=== PATIENT | male | born 1995 | race Caucasian/White ===

== ENCOUNTER 2020-02-16 03:15 | Day surgery (SDC) | payer OTHER ==
[2020-02-16] MEDS ORDERED: Sodium Chloride 0.9% 10 ML Syringe FLUSH PRN (03:27)
[2020-02-16] MEDS ORDERED: Lactated Ringers 1,000 ML IV ONE (03:27)
[2020-02-16] MEDS ORDERED: Morphine 4 MG/ML Syringe IVPUSH ONE ×2 (03:27→05:32)
[2020-02-16] MEDS ORDERED: Sodium Chloride 0.9% 2.5 ML Syringe FLUSH PRN (03:27)
[2020-02-16] MEDS ORDERED: Dicyclomine 10 MG Cap PO ONE (03:27)
--- NOTE | 2020-02-16 03:27 | EDM.PDOC ---
ED HPI GENERAL MEDICAL PROBLEM - General Chief Complaint: Abdominal Pain Stated Complaint: LOWER ABDOMINAL PAIN Time Seen by Provider: 02/16/20 03:23 Source of Information: Reports: Patient History Limitations: Reports: No Limitations - History of Present Illness INITIAL COMMENTS - FREE TEXT/NARRATIVE: 24-year-old male history of hypertension and hemorrhoids presents with abdominal cramping for 1 day. Cramping pain is moderate, waxes and wanes, started in the epigastric region then radiated to suprapubic region, associated with one episode of diarrhea with bright red blood. Denies fever, chills, nausea, vomiting, dysuria, penile discharge. He has been noncompliant on his HTN meds for about a month. Last PO was at 2030 last night. ROS: A 10-point review of systems, other than pertinent positives and negatives as stated per HPI, is otherwise negative Past medical history: No additional pertinent history Past Surgical history: No additional pertinent history Social history: No additional pertinent history Family history: No additional pertinent history PHYSICAL EXAM General: AOx4, GCS = 15, mild distress HEENT: dry mucous membrane Neck: supple, no meningismus, no Kernig or Brudzinski Cardiac: S1S2 RRR Respiratory: CTAB, no crackles or rales, no wheezing Abdomen: Soft, ttp suprapubic and LLQ, no rebound or guarding, nondistended, no pulsatile mass. Back: nontender Musculoskeletal: NVI distally, no deformity Neuro: No focal deficits, CN 2 - 12 WNL. mid abdominal Pain Score (Numeric/FACES): 7 - Related Data Allergies Allergy/AdvReac Type Severity Reaction Status Date / Time No Known Allergies Allergy Verified 02/16/20 03:37 Home Meds: Home Meds . [No Known Home Meds] 02/16/20 [History] ED ROS GENERAL - Review of Systems Review Of Systems: Comprehensive ROS is negative, except as noted in HPI. ED EXAM, GI/ABD - Physical Exam Exam: See Below (see dictation) Course - Vital Signs Last Recorded V/S: Last Vital Signs Temp 96.8 F L 02/16/20 03:35 Pulse 79 02/16/20 04:18 Resp 16 02/16/20 03:35 BP 162/96 H 02/16/20 04:18 Pulse Ox 98 02/16/20 04:18 - Orders/Labs/Meds Orders: Active Orders 24 hr Category Date Time Status Communication Order [RC] ROUTINE Care 02/16/20 05:20 Active Verify Patient Consent Obtain [RC] ASDIRECTED Care 02/16/20 05:19 Active Lactated Ringers [Ringers, Lactated] 1,000 ml Med 02/16/20 05:30 Active IV ASDIRECTED Sodium Chloride 0.9% [Saline Flush] Med 02/16/20 03:27 Active 10 ml FLUSH ASDIRECTED PRN Sodium Chloride 0.9% [Saline Flush] Med 02/16/20 03:27 Active 2.5 ml FLUSH ASDIRECTED PRN Saline Lock Insert [OM.PC] Stat Oth 02/16/20 03:27 Ordered Medication Orders Lactated Ringer's (Ringers, Lactated) 1,000 mls @ 150 mls/hr IV ASDIRECTED SAMPSON Last Admin: 02/16/20 05:34 Dose: 150 mls/hr Documented by: ANTOLIN Sodium Chloride (Saline Flush) 10 ml FLUSH ASDIRECTED PRN PRN Reason: Keep Vein Open Last Admin: 02/16/20 04:16 Dose: 10 ml Documented by: ANTOLIN Sodium Chloride (Saline Flush) 2.5 ml FLUSH ASDIRECTED PRN PRN Reason: Keep Vein Open Last Admin: 02/16/20 04:17 Dose: 2.5 ml Documented by: ANTOLIN Labs: Laboratory Tests 02/16/20 02/16/20 02/16/20 Range/Units 03:46 03:46 03:55 WBC 12.61 H (4.0-11.0) K/uL RBC 5.11 (4.50-5.90) M/uL Hgb 15.3 (13.0-17.0) g/dL Hct 44.2 (38.0-50.0) % MCV 86.5 (80.0-98.0) fL MCH 29.9 (27.0-32.0) pg MCHC 34.6 (31.0-37.0) g/dL RDW Std Deviation 40.8 (28.0-62.0) fl RDW Coeff of Swati 13 (11.0-15.0) % Plt Count 279 (150-400) K/uL MPV 9.60 (7.40-12.00) fL Neut % (Auto) 67.3 (48.0-80.0) % Lymph % (Auto) 22.5 (16.0-40.0) % [place] % (Auto) 7.8 (0.0-15.0) % Eos % (Auto) 2.2 (0.0-7.0) % Baso % (Auto) 0.2 (0.0-1.5) % Neut # (Auto) 8.5 H (1.4-5.7) K/uL Lymph # (Auto) 2.8 H (0.6-2.4) K/uL [place] # (Auto) 1.0 H (0.0-0.8) K/uL Eos # (Auto) 0.3 (0.0-0.7) K/uL Baso # (Auto) 0.0 (0.0-0.1) K/uL Nucleated RBC % 0.0 /100WBC Nucleated RBCs # 0 K/uL Sodium (136-148) mmol/L Potassium (3.5-5.1) mmol/L Chloride (98-107) mmol/L Carbon Dioxide (21.0-32.0) mmol/L BUN (7.0-18.0) mg/dL Creatinine (0.8-1.3) mg/dL Est Cr Clr Drug Dosing mL/min Estimated GFR (MDRD) ml/min Glucose (74-106) mg/dL Calcium (8.5-10.1) mg/dL Total Bilirubin (0.2-1.0) mg/dL AST (15-37) IU/L ALT (14-63) IU/L Alkaline Phosphatase (46-116) U/L Total Protein (6.4-8.2) g/dL Albumin (3.4-5.0) g/dL Globulin (2.6-4.0) g/dL Albumin/Globulin Ratio (0.9-1.6) Lipase (73-393) U/L Urine Color YELLOW Urine Appearance CLEAR Urine pH 5.0 (5.0-8.0) Ur Specific [place] >= 1.030 (1.001-1.035) Urine Protein NEGATIVE (NEGATIVE) mg/dL Urine Glucose (UA) NEGATIVE (NEGATIVE) mg/dL Urine Ketones NEGATIVE (NEGATIVE) mg/dL Urine Occult Blood NEGATIVE (NEGATIVE) Urine Nitrite NEGATIVE (NEGATIVE) Urine Bilirubin NEGATIVE (NEGATIVE) Urine Urobilinogen 0.2 (<2.0) EU/dL Ur Leukocyte Esterase NEGATIVE (NEGATIVE) Urine RBC 0-1 (0-2/HPF) Urine WBC 0-2 (0-5/HPF) Ur Epithelial Cells OCCASIONAL (NONE-FEW) Urine Bacteria RARE (NEGATIVE) Urine Mucus LIGHT (NONE-MOD) Urine Opiates Screen NEGATIVE (NEGATIVE) Ur Oxycodone Screen NEGATIVE (NEGATIVE) Urine Methadone Screen NEGATIVE (NEGATIVE) Ur Barbiturates Screen NEGATIVE (NEGATIVE) Ur Phencyclidine Scrn NEGATIVE (NEGATIVE) Ur Amphetamine Screen NEGATIVE (NEGATIVE) U Methamphetamines Scrn NEGATIVE (NEGATIVE) U Benzodiazepines Scrn NEGATIVE (NEGATIVE) U Cocaine Metab Screen NEGATIVE (NEGATIVE) U Marijuana (THC) Screen POSITIVE (NEGATIVE) COVID-19 (NICOLE) (NEGATIVE) 02/16/20 02/16/20 Range/Units 03:55 04:51 WBC (4.0-11.0) K/uL RBC (4.50-5.90) M/uL Hgb (13.0-17.0) g/dL Hct (38.0-50.0) % MCV (80.0-98.0) fL MCH (27.0-32.0) pg MCHC (31.0-37.0) g/dL RDW Std Deviation (28.0-62.0) fl RDW Coeff of Swati (11.0-15.0) % Plt Count (150-400) K/uL MPV (7.40-12.00) fL Neut % (Auto) (48.0-80.0) % Lymph % (Auto) (16.0-40.0) % [place] % (Auto) (0.0-15.0) % Eos % (Auto) (0.0-7.0) % Baso % (Auto) (0.0-1.5) % Neut # (Auto) (1.4-5.7) K/uL Lymph # (Auto) (0.6-2.4) K/uL [place] # (Auto) (0.0-0.8) K/uL Eos # (Auto) (0.0-0.7) K/uL Baso # (Auto) (0.0-0.1) K/uL Nucleated RBC % /100WBC Nucleated RBCs # K/uL Sodium 137 (136-148) mmol/L Potassium 3.9 (3.5-5.1) mmol/L Chloride 103 (98-107) mmol/L Carbon Dioxide 21.6 (21.0-32.0) mmol/L BUN 17 (7.0-18.0) mg/dL Creatinine 1.0 (0.8-1.3) mg/dL Est Cr Clr Drug Dosing 139.84 mL/min Estimated GFR (MDRD) > 60.0 ml/min Glucose 104 (74-106) mg/dL Calcium 8.9 (8.5-10.1) mg/dL Total Bilirubin 0.6 (0.2-1.0) mg/dL AST 16 (15-37) IU/L ALT 32 (14-63) IU/L Alkaline Phosphatase 111 (46-116) U/L Total Protein 7.3 (6.4-8.2) g/dL Albumin 4.2 (3.4-5.0) g/dL Globulin 3.1 (2.6-4.0) g/dL Albumin/Globulin Ratio 1.4 (0.9-1.6) Lipase 93 (73-393) U/L Urine Color Urine Appearance Urine pH (5.0-8.0) Ur Specific [place] (1.001-1.035) Urine Protein (NEGATIVE) mg/dL Urine Glucose (UA) (NEGATIVE) mg/dL Urine Ketones (NEGATIVE) mg/dL Urine Occult Blood (NEGATIVE) Urine Nitrite (NEGATIVE) Urine Bilirubin (NEGATIVE) Urine Urobilinogen (<2.0) EU/dL Ur Leukocyte Esterase (NEGATIVE) Urine RBC (0-2/HPF) Urine WBC (0-5/HPF) Ur Epithelial Cells (NONE-FEW) Urine Bacteria (NEGATIVE) Urine Mucus (NONE-MOD) Urine Opiates Screen (NEGATIVE) Ur Oxycodone Screen (NEGATIVE) Urine Methadone Screen (NEGATIVE) Ur Barbiturates Screen (NEGATIVE) Ur Phencyclidine Scrn (NEGATIVE) Ur Amphetamine Screen (NEGATIVE) U Methamphetamines Scrn (NEGATIVE) U Benzodiazepines Scrn (NEGATIVE) U Cocaine Metab Screen (NEGATIVE) U Marijuana (THC) Screen (NEGATIVE) COVID-19 (NICOLE) NEGATIVE (NEGATIVE) Meds: Medications Generic Name Dose Route Start Last Admin Trade Name Freq PRN Reason Stop Dose Admin Lactated Ringer's 1,000 mls @ 150 mls/hr 02/16/20 05:30 02/16/20 05:34 Ringers, Lactated IV 150 mls/hr ASDIRECTED SAMPSON Administration Sodium Chloride 10 ml 02/16/20 03:27 02/16/20 04:16 Saline Flush FLUSH 10 ml ASDIRECTED PRN Administration Keep Vein Open Sodium Chloride 2.5 ml 02/16/20 03:27 02/16/20 04:17 Saline Flush FLUSH 2.5 ml ASDIRECTED PRN Administration Keep Vein Open Discontinued Medications Generic Name Dose Route Start Last Admin Trade Name Freq PRN Reason Stop Dose Admin Dicyclomine HCl 20 mg 02/16/20 03:27 02/16/20 04:00 Bentyl PO 02/16/20 03:28 20 mg ONETIME ONE Administration Hydralazine HCl 10 mg 02/16/20 03:39 02/16/20 04:00 Apresoline IVPUSH 02/16/20 03:40 10 mg ONETIME ONE Administration Lactated Ringer's 1,000 mls @ 999 mls/hr 02/16/20 03:27 02/16/20 04:00 Ringers, Lactated IV 02/16/20 04:27 999 mls/hr .BOLUS ONE Administration Cefoxitin Sodium 2 gm/ Premix 50 mls @ 100 mls/hr 02/16/20 04:39 02/16/20 04:46 IV 02/16/20 05:08 100 mls/hr ONETIME ONE Administration Morphine Sulfate 4 mg 02/16/20 03:27 02/16/20 03:59 Morphine IVPUSH 02/16/20 03:28 4 mg ONETIME ONE Administration Morphine Sulfate 4 mg 02/16/20 05:32 02/16/20 05:39 Morphine IVPUSH 02/16/20 05:33 4 mg ONETIME ONE Administration Morphine Sulfate Confirm 02/16/20 05:30 02/16/20 05:41 Morphine Administered 02/16/20 05:31 Not Given Dose 4 mg .ROUTE .STK-MED ONE Ondansetron HCl 4 mg 02/16/20 04:14 02/16/20 04:14 Zofran IVPUSH 02/16/20 04:15 4 mg ONETIME ONE Administration Ondansetron HCl Confirm 02/16/20 04:13 02/16/20 04:17 Zofran Administered 02/16/20 04:14 Not Given Dose 4 mg .ROUTE .STK-MED ONE Ondansetron HCl 4 mg 02/16/20 05:33 02/16/20 05:40 Zofran IVPUSH 02/16/20 05:34 4 mg ONETIME ONE Administration - Re-Assessments/Exams Free Text/Narrative Re-Assessment/Exam: 02/16/20 04:30 CT result reviewed. I discussed with Dr. Edinson Estrella. He will come in to assess the patient now. Departure - Departure Time of Disposition: 04:28 Disposition: Still A Patient 30 Condition: Good Clinical Impression: Abdominal pain, Appendicitis - Discharge Information *PRESCRIPTION DRUG MONITORING PROGRAM REVIEWED*: Not Applicable *COPY OF PRESCRIPTION DRUG MONITORING REPORT IN PATIENT DENIS: Not Applicable Critical Care Note - Critical Care Note Total Time (mins): 40 Comments: Critical Care: The high probability of sudden, clinically significant deterioration in the rajiv carlton's condition required the highest level of my preparedness to intervene urgently. The services I provided to this patient were to treat and/or prevent clinically significant deterioration. Services included the following: chart data review, reviewing nursing notes and/or old charts, documentation time, automotive internet sales consultant collaboration regarding findings and treatment options, medication orders and m anagement, direct patient care, vital sign assessments and ordering, interpreting and reviewing diagnostic studies/lab tests. Aggregate critical care time includes only time during which I was engaged in work directly related to the patient's care, as described above, whether at the bedside or elsewhere in the Emergency Department. It did not include time spent performing other reported procedures or the services of residents, students, nurses or physician assistants. Frequent interventions and/or frequent repeat evaluations were required as well as counseling and coordination of care regard ing prognosis, treatments, and discussions with patient, staff and consultants. Critical Care (excluding other procedures): 40 minutes Sepsis Event Note (ED) - Focused Exam Vital Signs: Vital Signs Temp Pulse Resp BP Pulse Ox 02/16/20 04:18 79 162/96 H 98 02/16/20 03:58 78 161/104 H 97 02/16/20 03:35 96.8 F L 73 16 165/116 H 95 - My Orders Last 24 Hours: My Active Orders 02/16/20 03:27 Sodium Chloride 0.9% [Saline Flush] 10 ml FLUSH ASDIRECTED PRN Sodium Chloride 0.9% [Saline Flush] 2.5 ml FLUSH ASDIRECTED PRN Saline Lock Insert [OM.PC] Stat - Assessment/Plan Last 24 Hours: My Active Orders 02/16/20 03:27 Sodium Chloride 0.9% [Saline Flush] 10 ml FLUSH ASDIRECTED PRN Sodium Chloride 0.9% [Saline Flush] 2.5 ml FLUSH ASDIRECTED PRN Saline Lock Insert [OM.PC] Stat
[2020-02-16] MEDS ORDERED: hydrALAZINE 20 MG/ML SDV IVPUSH ONE (03:39)
[2020-02-16] MEDS ORDERED: Ondansetron 4 MG/2 ML SDV ONE ×2 (04:13→07:09)
[2020-02-16] MEDS ORDERED: Ondansetron 4 MG/2 ML SDV IVPUSH ONE ×2 (04:14→05:33)
--- NOTE | 2020-02-16 04:16 | CT ---
INDICATION: Abdominal pain TECHNIQUE: CT Abdomen and pelvis without i.v. contrast. Coronal and sagittal reformats were obtained. COMPARISON: None FINDINGS: Lower chest: Unremarkable. Liver: Unremarkable. Spleen: Unremarkable. Pancreas: Unremarkable. Gallbladder: Unremarkable. Kidney: Unremarkable. No kidney or ureteral stones or obstruction seen. Adrenal: Unremarkable. Bowel: Unremarkable. The appendix is distended measuring 9 mm. There is moderate surrounding inflammatory changes noted near the tip. Vascular: Unremarkable. Lymph: Unremarkable. Peritoneum: Unremarkable. No pneumoperitoneum is seen. No significant ascites is noted. Pelvis: Unremarkable. Soft tissue: Unremarkable. Bone: Unremarkable for age. IMPRESSION: 1. The appendix is distended measuring 9 mm. There is moderate surrounding inflammatory changes noted near the tip. These findings are consistent with acute appendicitis. Dictated by Erick Spears MD @ 02/16/2020 4:15:06 AM Please note that all CT scans at this facility use dose modulation, iterative reconstruction, and/or weight-based dosing when appropriate to reduce radiation dose to as low as reasonably achievable. Dictated by: Erick Spears MD @ 02/16/2020 04:15:08 (Electronically Signed)
[2020-02-16 04:24] LABS: BLOOD UREA NITROGEN,BUN 17 mg/dL (7.0-18.0); CARBON DIOXIDE,CO2 21.6 mmol/L (21.0-32.0); CHLORIDE,CL 103 mmol/L (98-107); GLUCOSE RANDOM 104 mg/dL (74-106); LIPASE 93 U/L (73-393); POTASSIUM,K 3.9 mmol/L (3.5-5.1); SODIUM,NA 137 mmol/L (136-148)
[2020-02-16] MEDS ORDERED: cefOXitin 2 GM in Premix Bag 1 BAG IV ONE (04:39)
--- NOTE | 2020-02-16 05:28 | PCM.SN.2 ---
- Free Text/Narrative Note: pt seen, chart reviewed; h/p and ct cw acute appendicitis; pt would benefit from appendectomy, rb dw pt re bleeding/infection/damage to nearby organs/postop course, pt concurred and proceed w surgery; consent, mefoxin 2 g iv, LR 150, shave abd and proceed to surgery; [id number]
[2020-02-16] MEDS ORDERED: Lactated Ringers 1,000 ML IV SCH ×2 (05:30→07:45)
[2020-02-16] MEDS ORDERED: Morphine 4 MG/ML Syringe ONE (05:30)
[2020-02-16] MEDS ORDERED: Rocuronium 100 MG/10 ML Syringe ONE (05:45)
[2020-02-16] MEDS ORDERED: fentaNYL 100 MCG/2 ML SDV ONE ×2 (05:45→06:49)
[2020-02-16] MEDS ORDERED: Lidocaine 2% 5 ML SDV ONE (05:45)
[2020-02-16] MEDS ORDERED: Midazolam 1 MG/ML 2 ML SDV ONE (05:45)
[2020-02-16] MEDS ORDERED: Propofol 200 MG/20 ML SDV ONE ×2 (05:45→06:27)
[2020-02-16] MEDS ORDERED: Succinylcholine/Sod PF 100 MG/5 ML SYRINGE IV ONE (05:45)
[2020-02-16] MEDS ORDERED: Sugammadex Sodium 200 MG/2 ML VIAL ONE (05:54)
[2020-02-16] MEDS ORDERED: Bupivacaine 0.25%/EPINEPHrine 1:200,000 10 ML SDV ONE (06:02)
--- NOTE | 2020-02-16 06:57 | CONS ---
DATE OF CONSULTATION: 02/16/2020 DATE OF : 1995 PRIMARY CARE PHYSICIAN: None PCP Consult was from Dr. Garza, ER provider. REASON FOR CONSULTATION: Acute appendicitis. HISTORY OF PRESENT ILLNESS: The patient is 24 years old gentleman, complained over 12-hour history of gradual-onset periumbilical pain, subsequently migrated to the right lower quadrant, sought help in the emergency room. CAT scan showed dilated appendix with periappendiceal inflammation. Surgery was then consulted. The patient remarked the pain is about 5 on the pain scale and denied prior episode. Denied fever, chills, or diarrhea. Last meal was yesterday. PAST MEDICAL HISTORY: Significant for no diabetes, [place], CVA. The patient has hypertension. PAST SURGICAL HISTORY: Tonsil and adenoids. No abdominal surgery. FAMILY HISTORY: Noncontributory. SOCIAL HISTORY: Chewing tobacco. Smoking tobacco. Marijuana use, shows up on the urinalysis. Social alcohol. ALLERGIES: Please refer to Nursing note. MEDICATIONS: Please refer to Nursing note. PHYSICAL EXAMINATION: GENERAL: A very pleasant gentleman, in no acute distress. HEENT: Normocephalic and atraumatic. Sclerae anicteric. LUNGS: Clear to auscultation. HEART: Regular rate and rhythm. ABDOMEN: Soft, nondistended. No pulsating tender midline abdominal structure. Exquisite tenderness on the McBurney point. No rebound tenderness. Positive Rovsing sign. DIAGNOSTIC DATA: White count is 12. UA is positive for marijuana. CAT scan suggest acute appendicitis. ASSESSMENT AND PLAN: Imaging study and history and physical consistent with acute appendicitis. Patient would benefit from surgery. Risks and benefits discussed with the patient including bleeding, infection, and damage to nearby organs and postoperative course. The patient concurred and will proceed with surgery. As always, thank you for your kind referral. CLAUDIA / ANDRES /[id number]
[2020-02-16] MEDS ORDERED: Naloxone 0.4 MG/ML Syringe IVPUSH PRN (07:05)
[2020-02-16] MEDS ORDERED: EPINEPHrine 1:10,000 1 MG/10 ML Syringe IVPUSH PRN (07:05)
[2020-02-16] MEDS ORDERED: Atropine 0.1 MG/ML 10 ML Syringe IVPUSH PRN ×2 (07:05)
[2020-02-16] MEDS ORDERED: 50% Dextrose in Water 50 ML Syringe IVPUSH PRN (07:05)
[2020-02-16] MEDS ORDERED: Albuterol 0.083% 2.5 MG/3 ML Neb Soln NEB PRN (07:05)
--- NOTE | 2020-02-16 07:05 | PCM.PREANE ---
Preanesthetic Assessment - Procedure Proposed Procedure: Lap Appy - Anesthesia/Transfusion/Family Hx Anesthesia History: Prior Anesthesia Without Reaction Family History of Anesthesia Reaction: No Transfusion History: No Prior Transfusion(s) - Review of Systems General: No Symptoms Pulmonary: No Symptoms Cardiovascular: No Symptoms Gastrointestinal: Abdominal Pain Neurological: No Symptoms Other: Reports: None - Physical Assessment NPO Status Date: 02/15/20 NPO Status Time: 20:00 (soup) Vital Signs: Last Vital Signs Temp 36.0 C L 02/16/20 03:35 Pulse 79 02/16/20 04:18 Resp 16 02/16/20 03:35 BP 162/96 H 02/16/20 04:18 Pulse Ox 98 02/16/20 04:18 Height: 6 ft 4 in Weight: 109.2 kg ASA Class: 2E Mental Status: Alert & Oriented x3 Airway Class: Mallampati = 3 Dentition: Reports: Normal Dentition Thyro-Mental Finger Breadths: 3 Mouth Opening Finger Breadths: 2 ROM/Head Extension: Full Lungs: Clear to Auscultation, Normal Respiratory Effort Cardiovascular: Regular Rate, Regular Rhythm - Lab Values: Laboratory Last Values WBC 12.61 K/uL (4.0-11.0) H 02/16/20 03:55 RBC 5.11 M/uL (4.50-5.90) 02/16/20 03:55 Hgb 15.3 g/dL (13.0-17.0) 02/16/20 03:55 Hct 44.2 % (38.0-50.0) 02/16/20 03:55 MCV 86.5 fL (80.0-98.0) 02/16/20 03:55 MCH 29.9 pg (27.0-32.0) 02/16/20 03:55 MCHC 34.6 g/dL (31.0-37.0) 02/16/20 03:55 RDW Std Deviation 40.8 fl (28.0-62.0) 02/16/20 03:55 RDW Coeff of Swati 13 % (11.0-15.0) 02/16/20 03:55 Plt Count 279 K/uL (150-400) 02/16/20 03:55 MPV 9.60 fL (7.40-12.00) 02/16/20 03:55 Neut % (Auto) 67.3 % (48.0-80.0) 02/16/20 03:55 Lymph % (Auto) 22.5 % (16.0-40.0) 02/16/20 03:55 [place] % (Auto) 7.8 % (0.0-15.0) 02/16/20 03:55 Eos % (Auto) 2.2 % (0.0-7.0) 02/16/20 03:55 Baso % (Auto) 0.2 % (0.0-1.5) 02/16/20 03:55 Neut # (Auto) 8.5 K/uL (1.4-5.7) H 02/16/20 03:55 Lymph # (Auto) 2.8 K/uL (0.6-2.4) H 02/16/20 03:55 [place] # (Auto) 1.0 K/uL (0.0-0.8) H 02/16/20 03:55 Eos # (Auto) 0.3 K/uL (0.0-0.7) 02/16/20 03:55 Baso # (Auto) 0.0 K/uL (0.0-0.1) 02/16/20 03:55 Nucleated RBC % 0.0 /100WBC 02/16/20 03:55 Nucleated RBCs # 0 K/uL 02/16/20 03:55 Sodium 137 mmol/L (136-148) 02/16/20 03:55 Potassium 3.9 mmol/L (3.5-5.1) 02/16/20 03:55 Chloride 103 mmol/L (98-107) 02/16/20 03:55 Carbon Dioxide 21.6 mmol/L (21.0-32.0) 02/16/20 03:55 BUN 17 mg/dL (7.0-18.0) 02/16/20 03:55 Creatinine 1.0 mg/dL (0.8-1.3) 02/16/20 03:55 Est Cr Clr Drug Dosing 139.84 mL/min 02/16/20 03:55 Estimated GFR (MDRD) > 60.0 ml/min 02/16/20 03:55 Glucose 104 mg/dL (74-106) 02/16/20 03:55 Calcium 8.9 mg/dL (8.5-10.1) 02/16/20 03:55 Total Bilirubin 0.6 mg/dL (0.2-1.0) 02/16/20 03:55 AST 16 IU/L (15-37) 02/16/20 03:55 ALT 32 IU/L (14-63) 02/16/20 03:55 Alkaline Phosphatase 111 U/L (46-116) 02/16/20 03:55 Total Protein 7.3 g/dL (6.4-8.2) 02/16/20 03:55 Albumin 4.2 g/dL (3.4-5.0) 02/16/20 03:55 Globulin 3.1 g/dL (2.6-4.0) 02/16/20 03:55 Albumin/Globulin Ratio 1.4 (0.9-1.6) 02/16/20 03:55 Lipase 93 U/L (73-393) 02/16/20 03:55 Urine Color YELLOW 02/16/20 03:46 Urine Appearance CLEAR 02/16/20 03:46 Urine pH 5.0 (5.0-8.0) 02/16/20 03:46 Ur Specific [place] >= 1.030 (1.001-1.035) 02/16/20 03:46 Urine Protein NEGATIVE mg/dL (NEGATIVE) 02/16/20 03:46 Urine Glucose (UA) NEGATIVE mg/dL (NEGATIVE) 02/16/20 03:46 Urine Ketones NEGATIVE mg/dL (NEGATIVE) 02/16/20 03:46 Urine Occult Blood NEGATIVE (NEGATIVE) 02/16/20 03:46 Urine Nitrite NEGATIVE (NEGATIVE) 02/16/20 03:46 Urine Bilirubin NEGATIVE (NEGATIVE) 02/16/20 03:46 Urine Urobilinogen 0.2 EU/dL (<2.0) 02/16/20 03:46 Ur Leukocyte Esterase NEGATIVE (NEGATIVE) 02/16/20 03:46 Urine RBC 0-1 (0-2/HPF) 02/16/20 03:46 Urine WBC 0-2 (0-5/HPF) 02/16/20 03:46 Ur Epithelial Cells OCCASIONAL (NONE-FEW) 02/16/20 03:46 Urine Bacteria RARE (NEGATIVE) 02/16/20 03:46 Urine Mucus LIGHT (NONE-MOD) 02/16/20 03:46 Urine Opiates Screen NEGATIVE (NEGATIVE) 02/16/20 03:46 Ur Oxycodone Screen NEGATIVE (NEGATIVE) 02/16/20 03:46 Urine Methadone Screen NEGATIVE (NEGATIVE) 02/16/20 03:46 Ur Barbiturates Screen NEGATIVE (NEGATIVE) 02/16/20 03:46 Ur Phencyclidine Scrn NEGATIVE (NEGATIVE) 02/16/20 03:46 Ur Amphetamine Screen NEGATIVE (NEGATIVE) 02/16/20 03:46 U Methamphetamines Scrn NEGATIVE (NEGATIVE) 02/16/20 03:46 U Benzodiazepines Scrn NEGATIVE (NEGATIVE) 02/16/20 03:46 U Cocaine Metab Screen NEGATIVE (NEGATIVE) 02/16/20 03:46 U Marijuana (THC) Screen POSITIVE (NEGATIVE) 02/16/20 03:46 COVID-19 (NICOLE) NEGATIVE (NEGATIVE) 02/16/20 04:51 - Allergies Allergies/Adverse Reactions: Allergies Allergy/AdvReac Type Severity Reaction Status Date / Time No Known Allergies Allergy Verified 02/16/20 03:37 - Acknowledgements Anesthesia Type Planned: General Anesthesia Pt an Appropriate Candidate for the Planned Anesthesia: Yes Alternatives and Risks of Anesthesia Discussed w Pt/Guardian: Yes Pt/Guardian Understands and Agrees with Anesthesia Plan: Yes PreAnesthesia Questionnaire Other HEENT History: Tonsillectomy Cardiovascular History: Reports: Hypertension Respiratory History: Reports: Other (See Below) Other Respiratory History: smoker - pack of cigarettes every 2 weeks, marijuana weekly - last used 02/14 Gastrointestinal History: Reports: GERD - Past Surgical History HEENT Surgical History: Reports: Tonsillectomy Other HEENT Surgeries/Procedures: wisdom teeth - SUBSTANCE USE Smoking Status *Q: Light Tobacco Smoker Recreational Drug Use History: Yes Recreational Drug Type: Reports: Marijuana/Hashish - HOME MEDS Home Medications: Home Meds . [No Known Home Meds] 02/16/20 [History] - CURRENT (IN HOUSE) MEDS Current Meds: Current Medications Lactated Ringer's (Ringers, Lactated) 1,000 mls @ 150 mls/hr IV ASDIRECTED SAMPSON Last Admin: 02/16/20 05:34 Dose: 150 mls/hr Documented by: Sodium Chloride (Saline Flush) 10 ml FLUSH ASDIRECTED PRN PRN Reason: Keep Vein Open Last Admin: 02/16/20 04:16 Dose: 10 ml Documented by: Sodium Chloride (Saline Flush) 2.5 ml FLUSH ASDIRECTED PRN PRN Reason: Keep Vein Open Last Admin: 02/16/20 04:17 Dose: 2.5 ml Documented by: Discontinued Medications Bupivacaine HCl/Epinephrine Bitart (Marcaine 0.25%/Epinephrine 1:200,000) Confirm Administered Dose 30 ml .ROUTE .STK-MED ONE Stop: 02/16/20 06:03 Dicyclomine HCl (Bentyl) 20 mg PO ONETIME ONE Stop: 02/16/20 03:28 Last Admin: 02/16/20 04:00 Dose: 20 mg Documented by: Fentanyl (Sublimaze) Confirm Administered Dose 100 mcg .ROUTE .STK-MED ONE Stop: 02/16/20 05:46 Fentanyl (Sublimaze) Confirm Administered Dose 100 mcg .ROUTE .STK-MED ONE Stop: 02/16/20 06:50 Hydralazine HCl (Apresoline) 10 mg IVPUSH ONETIME ONE Stop: 02/16/20 03:40 Last Admin: 02/16/20 04:00 Dose: 10 mg Documented by: Lactated Ringer's (Ringers, Lactated) 1,000 mls @ 999 mls/hr IV .BOLUS ONE Stop: 02/16/20 04:27 Last Admin: 02/16/20 04:00 Dose: 999 mls/hr Documented by: Cefoxitin Sodium 2 gm/ Premix 50 mls @ 100 mls/hr IV ONETIME ONE Stop: 02/16/20 05:08 Last Admin: 02/16/20 04:46 Dose: 100 mls/hr Documented by: Acetaminophen (Ofirmev) Confirm Administered Dose 100 mls @ as directed .ROUTE .STK-MED ONE Stop: 02/16/20 05:56 Lidocaine (Xylocaine-Mpf 2%) Confirm Administered Dose 5 ml .ROUTE .STK-MED ONE Stop: 02/16/20 05:46 Midazolam HCl (Versed 1 Mg/Ml) Confirm Administered Dose 2 mg .ROUTE .STK-MED ONE Stop: 02/16/20 05:46 Morphine Sulfate (Morphine) 4 mg IVPUSH ONETIME ONE Stop: 02/16/20 03:28 Last Admin: 02/16/20 03:59 Dose: 4 mg Documented by: Morphine Sulfate (Morphine) 4 mg IVPUSH ONETIME ONE Stop: 02/16/20 05:33 Last Admin: 02/16/20 05:39 Dose: 4 mg Documented by: Morphine Sulfate (Morphine) Confirm Administered Dose 4 mg .ROUTE .STK-MED ONE Stop: 02/16/20 05:31 Last Admin: 02/16/20 05:41 Dose: Not Given Documented by: Ondansetron HCl (Zofran) 4 mg IVPUSH ONETIME ONE Stop: 02/16/20 04:15 Last Admin: 02/16/20 04:14 Dose: 4 mg Documented by: Ondansetron HCl (Zofran) Confirm Administered Dose 4 mg .ROUTE .STK-MED ONE Stop: 02/16/20 04:14 Last Admin: 02/16/20 04:17 Dose: Not Given Documented by: Ondansetron HCl (Zofran) 4 mg IVPUSH ONETIME ONE Stop: 02/16/20 05:34 Last Admin: 02/16/20 05:40 Dose: 4 mg Documented by: Propofol (Diprivan 20 Ml) Confirm Administered Dose 200 mg .ROUTE .STK-MED ONE Stop: 02/16/20 05:46 Propofol (Diprivan 20 Ml) Confirm Administered Dose 200 mg .ROUTE .STK-MED ONE Stop: 02/16/20 06:28 Rocuronium [place] (Zemuron) Confirm Administered Dose 100 mg .ROUTE .STK-MED ONE Stop: 02/16/20 05:46 Sugammadex Sodium (Bridion) Confirm Administered Dose 400 mg .ROUTE .STK-MED ONE Stop: 02/16/20 05:55
[2020-02-16] MEDS ORDERED: Dexamethasone 4 MG/ML 5 ML MDV ONE (07:09)
[2020-02-16] MEDS ORDERED: Glycopyrrolate 0.2 MG/ML SDV ONE (07:15)
[2020-02-16] MEDS ORDERED: Ketorolac 30 MG/ML SDV ONE (07:33)
--- NOTE | 2020-02-16 07:36 | PCM.OPNOTE ---
- General Post-Op/Procedure Note Date of Surgery/Procedure: 02/16/20 Operative Procedure(s): lap appy Findings: appendix is full of purulent exudate at distal half cw appendicitis suppurativa, gross perf not observed; [id number] Pre Op Diagnosis: acute appy Post-Op Diagnosis: Same Anesthesia Technique: General ET Tube Primary Surgeon: Edinson Estrella Pathology: sent Complications: None Condition: Good
[2020-02-16] MEDS ORDERED: Morphine 4 MG/ML Syringe IVPUSH PRN (07:41)
[2020-02-16] MEDS ORDERED: Ondansetron 4 MG/2 ML SDV IVPUSH PRN (07:41)
[2020-02-16] MEDS ORDERED: Acetaminophen/oxyCODONE 325-5 MG Tab PO PRN (07:42)
[2020-02-16] MEDS: fentaNYL 100 MCG/2 ML SDV IVPUSH PRN ×2 (07:43→07:56)
[2020-02-16] MEDS ORDERED: cefOXitin 1 GM in Premix Bag 1 BAG IV SCH ×2 (07:45→12:15)
--- NOTE | 2020-02-16 08:37 | OR ---
SURGEON: Edinson Estrella MD DATE OF PROCEDURE: 02/16/2020 PREOPERATIVE DIAGNOSIS: Acute appendicitis. POSTOPERATIVE DIAGNOSIS: Acute appendicitis. PROCEDURE PERFORMED: Laparoscopic appendectomy. PRIMARY SURGEON: Edinson Estrella MD COMPLICATIONS: None. FINDINGS: Appendix is totally full of exudate on the distal half and attached to the abdominal wall and covered by surrounding organs consistent with acute appendicitis. Gross perforation is not observed. DESCRIPTION OF PROCEDURE: The patient was taken to the operating room and placed in the supine position. Following induction of general endotracheal anesthesia, the patient's abdomen was prepped and draped in the sterile fashion. A time-out has been called. The patient was identified. The procedure was identified. The antibiotics were identified. The procedure then proceeded. The abdomen was prepped and draped in a standard fashion. After assessment of appropriate landmarks, a 12 millimeter trocar was inserted supraumbilically using Optiview and pneumoperitoneum was then achieved. This was followed with placement of 5 millimeter port in the right upper quadrant and another 5 millimeter port infraumbilically. The camera was inserted supraumbilical site and two laparoscopic Isaias retractors were then inserted through the other two sites. Following the cecum, the appendix was located. The appendix was then lifted up, and using a GI stapler the appendix was amputated at the base. And using the GI stapler, the mesoappendix was then amputated. The appendix was retrieved by an endoscopic bag and sent for pathologist. This was then followed by re-insertion of the camera to examine the staple line, and hemostasis. The trocars were then removed. The umbilical site was closed with 2-0 Vicryl deep stitch and skin mary, the other 2 5 mm port sites were closed with skin mary; The patient was then awakened, extubated, and transferred to the recovery room in hemodynamically stable condition. Prior to closing, sponge count and instrument count was correct. Dr. Estrella was present throughout the whole procedure. Intraoperative findings as dictated above. As always, thank you for the kind referral. CLAUDIA CAMPOS /[id number] EDUAR
--- NOTE | 2020-02-16 09:10 | PCM.POSTAN ---
POST ANESTHESIA ASSESSMENT - MENTAL STATUS Mental Status: Alert, Oriented - VITAL SIGNS Vital Signs: Last Vital Signs Temp 99.3 F 02/16/20 07:35 Pulse 83 02/16/20 08:10 Resp 11 L 02/16/20 08:10 BP 129/84 02/16/20 08:10 Pulse Ox 93 L 02/16/20 08:10 - RESPIRATORY Respiratory Status: Respiratory Rate WNL, Airway Patent, O2 Saturation Stable - CARDIOVASCULAR CV Status: Pulse Rate WNL, Blood Pressure Stable - GASTROINTESTINAL GI Status: No Symptoms - POST OP HYDRATION Hydration Status: Adequate & Stable
== END 2020-02-16 13:30 | disposition home or self-care (01) ==
LOC: MW.ED 03:15 → MW.SDS 05:15 → MW.MS 05:17 → MW.SDS 13:30
PROVIDERS: ATTEND Surgery
DX: K35.80 Unspecified acute appendicitis (principal); Z01.812 Encounter for preprocedural laboratory examination; Z20.828 Contact with and (suspected) exposure to other viral communicable diseases; I10 Essential (primary) hypertension; F17.220 Nicotine dependence, chewing tobacco, uncomplicated; F17.210 Nicotine dependence, cigarettes, uncomplicated
CPT/HCPCS: 36415; 44970; 74176; 80053; 80305; 81001; 83690; 85025; 87635; 96361; 96365; 96375; 99285; A9270; C1776; J0131; J0360; J0694; J1100; J1885; J2001; J2250; J2270; J2405; J2704; J3010; J3490; J7120; 00840; 88304; 99291; J0330; U0002

== ENCOUNTER → 2020-03-22 | Day surgery (SDC) | payer OTHER ==
[~2020-03-22] MED LIST: Lactated Ringers 1,000 ML IV SCH; Midazolam 1 MG/ML 2 ML SDV ONE; Propofol 200 MG/20 ML SDV ONE; fentaNYL 100 MCG/2 ML SDV ONE
--- NOTE | 2020-03-22 07:20 | PCM.PREANE ---
Preanesthetic Assessment - Anesthesia/Transfusion/Family Hx Anesthesia History: Prior Anesthesia Without Reaction Family History of Anesthesia Reaction: No Transfusion History: No Prior Transfusion(s) - Review of Systems General: No Symptoms Pulmonary: No Symptoms Cardiovascular: No Symptoms Neurological: No Symptoms Other: Reports: None - Physical Assessment NPO Status Date: 03/21/20 Height: 6 ft 4 in Weight: 108.862 kg ASA Class: 2 Mental Status: Alert & Oriented x3 Airway Class: Mallampati = 2 Dentition: Reports: Normal Dentition ROM/Head Extension: Full Lungs: Clear to Auscultation, Normal Respiratory Effort Cardiovascular: Regular Rate, Regular Rhythm - Allergies Allergies/Adverse Reactions: Allergies Allergy/AdvReac Type Severity Reaction Status Date / Time No Known Allergies Allergy Verified 03/16/20 08:10 - Blood Blood Available: No - Anesthesia Plan Pre-Op Medication Ordered: None - Acknowledgements Anesthesia Type Planned: General Anesthesia (tiva) Pt an Appropriate Candidate for the Planned Anesthesia: Yes Alternatives and Risks of Anesthesia Discussed w Pt/Guardian: Yes Pt/Guardian Understands and Agrees with Anesthesia Plan: Yes PreAnesthesia Questionnaire HEENT History: Other HEENT History: Tonsillectomy Cardiovascular History: Reports: Hypertension Respiratory History: Reports: None Other Respiratory History: smoker - pack of cigarettes every 2 weeks, marijuana weekly - last used 02/14 Gastrointestinal History: Reports: GERD Other Gastrointestinal History: states has been alternating constipation and diarrhea, rectal bleeding and stomach pain Genitourinary History: Reports: None Musculoskeletal History: Reports: None Neurological History: Reports: None Psychiatric History: Reports: ADHD Other Psychiatric History: ADHD in the past Endocrine/Metabolic History: Reports: None Hematologic History: Reports: None Immunologic History: Reports: None Oncologic (Cancer) History: Reports: None Dermatologic History: Reports: None - Infectious Disease History Infectious Disease History: Reports: None - Past Surgical History Head Surgeries/Procedures: Reports: None HEENT Surgical History: Reports: Myringotomy w Tube(s), Tonsillectomy GI Surgical History: Reports: Appendectomy - SUBSTANCE USE Smoking Status *Q: Former Smoker - HOME MEDS Home Medications: Home Meds Omeprazole 20 mg PO DAILY 03/16/20 [History] lisinopriL [Lisinopril] 20 mg PO DAILY 03/16/20 [History] - CURRENT (IN HOUSE) MEDS Current Meds: Current Medications Lactated Ringer's (Ringers, Lactated) 1,000 mls @ 125 mls/hr IV ASDIRECTED SAMPSON Discontinued Medications Fentanyl (Sublimaze) Confirm Administered Dose 100 mcg .ROUTE .STK-MED ONE Stop: 03/22/20 07:10 Lidocaine HCl (Xylocaine-Mpf 1%) Confirm Administered Dose 5 ml .ROUTE .STK-MED ONE Stop: 03/22/20 07:12 Midazolam HCl (Versed 1 Mg/Ml) Confirm Administered Dose 2 mg .ROUTE .STK-MED ONE Stop: 03/22/20 07:10 Propofol (Diprivan 20 Ml) Confirm Administered Dose 400 mg .ROUTE .STK-MED ONE Stop: 03/22/20 07:10
--- NOTE | 2020-03-22 08:12 | PCM.OPNOTE ---
- General Post-Op/Procedure Note Date of Surgery/Procedure: 03/22/20 Operative Procedure(s): egd w bx. colonoscopy Findings: see [id number] Pre Op Diagnosis: BRBPR Post-Op Diagnosis: Same Anesthesia Technique: Moderate Sedation Primary Surgeon: Edinson Estrella Pathology: egd bx Complications: None Condition: Good
--- NOTE | 2020-03-22 08:25 | PCM.POSTAN ---
POST ANESTHESIA ASSESSMENT - MENTAL STATUS Mental Status: Alert, Oriented - VITAL SIGNS Vital Signs: Last Vital Signs Temp 97.5 F 03/22/20 07:00 Pulse 73 03/22/20 08:20 Resp 20 03/22/20 08:20 BP 106/51 L 03/22/20 08:20 Pulse Ox 95 03/22/20 08:20 - RESPIRATORY Respiratory Status: Respiratory Rate WNL, Airway Patent, O2 Saturation Stable - CARDIOVASCULAR CV Status: Pulse Rate WNL, Blood Pressure Stable - GASTROINTESTINAL GI Status: No Symptoms - POST OP HYDRATION Hydration Status: Adequate & Stable
--- NOTE | 2020-03-22 08:26 | PCM48HPAN ---
Post Anesthesia Note - EVALUATION WITHIN 48HRS OF ANESTHETIC Vital Signs in Normal Range: Yes Patient Participated in Evaluation: Yes Respiratory Function Stable: Yes Airway Patent: Yes Cardiovascular Function Stable: Yes Hydration Status Stable: Yes Pain Control Satisfactory: Yes Nausea and Vomiting Control Satisfactory: Yes Mental Status Recovered: Yes Vital Signs: Last Vital Signs Temp 97.5 F 03/22/20 07:00 Pulse 73 03/22/20 08:20 Resp 20 03/22/20 08:20 BP 106/51 L 03/22/20 08:20 Pulse Ox 95 03/22/20 08:20
--- NOTE | 2020-03-22 13:34 | OR ---
SURGEON: Edinson Estrella MD DATE OF PROCEDURE: 03/22/2020 PREOPERATIVE DIAGNOSIS: Bright red blood per rectum. POSTOPERATIVE DIAGNOSIS: Hemorrhoid. PROCEDURES PERFORMED: Esophagogastroduodenoscopy with biopsy and colonoscopy. DESCRIPTION OF PROCEDURE: EGD: The patient was taken to the endoscopy room, and with the ASSISTANT OPERATOR, Diprivan was administered. A well-lubricated EGD scope was gently inserted through the oropharynx, down the esophagus, passing through the gastroesophageal junction, into the stomach. The mucosa was examined upon the passage. Any etiology will be noted. Once in the stomach, we continued to advance to the distal antrum, passed through the pylorus into the second portion of the duodenum. Again, the mucosa was examined for any abnormality and etiology. The scope was then retrieved back to the stomach and then retroflexed to look at the fundus of the stomach. If a biopsy was indicated, we will biopsy the antrum, body, and gastroesophageal junction. The air will be sucked out while the scope is retrieved to reduce the patient's discomfort. The patient tolerated the procedure well. There were no intraoperative complications. Dr. Estrella was present through the whole procedure. Prior to surgery, a time-out had been called, the patient identified, procedure identified and antibiotic administered. The patient was taken to the endoscopy room. A time out was called, patient identified, and procedure identified. Diprivan was then administrated. Patient went from awake to sleep, hearing doctor talking or door closing is normal. Perineum inspection and digital examination were then performed. A well- lubricated colonoscope was gently inserted through the rectum, advanced past the rectosigmoid junction, the descending colon, splenic flexure, transverse colon, hepatic flexure, ascending colon, arrived to the cecum. Cecum was identified as dictated in the finding. Then the scope was carefully withdrawn while attention was paid to the mucosal surface for any abnormality. Air will be sucked out during the scope withdrawal. At the rectum, retroflexed to examine any rectal diseases, fistula or hemorrhoids. Patient tolerated procedure well. There were no intraoperative complications, and Dr. Estrella was present throughout the whole procedure. FINDINGS: EGD findings: 1. The patient is easily sedated with ASSISTANT OPERATOR and Diprivan, the patient is soundly snoring. 2. The patient's oropharynx and proximal esophagus have no disease. No stricture, inflammation, varicosity, or ulcer. Distal esophagus at GE junction at 40 shows very minimal salmon-colored change, suggests very mild acid reflux. Stomach rugae are normal in appearance and antrum looks fine. Duodenum looks grossly normal. Retroflexed look at fundus of the stomach, there is no hiatal hernia observed. Biopsy done at antrum, body, GE junction at 40 and sucked out the gas while scope pulling out. During the whole study, there is no food, bile, or ulcer observed. Colonoscopy findings: 1. The patient is easily sedated with ASSISTANT OPERATOR and Diprivan, the patient is soundly snoring. 2. Bowel prep is average with some liquid stool, no semi-formed stool or stool ball. 3. Colon is rather straightforward. Cecum indicated by ileocecal fold, one-to- one indentation, appendiceal orifice. Light emittance is not observed. ScopeGuide is pointing south. Mucosa examined upon scope pulling out. The patient does not have diverticulosis, polyp, mass, growth, inflammation, stricture, ulceration, AV malformation, blood, none of those. Stool is yellow. The patient does have a little bit mild external hemorrhoid and mild internal hemorrhoid. Does not amount to surgery at this stage. We will talk about it in the followup visit, and we will advise the patient some constipation or hemorrhoid bowel regimen. CLAUDIA / ANDRES /[id number]
== END | disposition home or self-care (01) ==
LOC: MW.SDS 06:29
PROVIDERS: ATTEND Surgery
DX: K64.4 Residual hemorrhoidal skin tags (principal); K64.8 Other hemorrhoids; K29.50 Unspecified chronic gastritis without bleeding; K21.0 Gastro-esophageal reflux disease with esophagitis; I10 Essential (primary) hypertension; F90.9 Attention-deficit hyperactivity disorder, unspecified type; K62.5 Hemorrhage of anus and rectum; K52.9 Noninfective gastroenteritis and colitis, unspecified; Z87.891 Personal history of nicotine dependence; Z79.899 Other long term (current) drug therapy
CPT/HCPCS: 43239; 45378; J2001; J2250; J2704; J3010; J7120

== ENCOUNTER 2021-07-01 16:08 | Emergency (ER) | payer OTHER, MEDICAID ==
[2021-07-01] MEDS ORDERED: Sodium Chloride 0.9% 2.5 ML Syringe FLUSH PRN (16:14)
[2021-07-01] MEDS ORDERED: Sodium Chloride 0.9% 10 ML Syringe FLUSH PRN (16:14)
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
[2021-07-01 17:35] LABS: CORONAVIRUS COVID-19 NAA POSITIVE (NEGATIVE); INFLUENZA A NAA NEGATIVE (NEGATIVE); INFLUENZA B NAA NEGATIVE (NEGATIVE)
== END 2021-07-01 18:07 | disposition home or self-care (01) ==
LOC: MW.ED 16:08
DX: S20.219A Contusion of unspecified front wall of thorax, initial encounter (principal); M79.661 Pain in right lower leg; I10 Essential (primary) hypertension; F17.210 Nicotine dependence, cigarettes, uncomplicated; R00.0 Tachycardia, unspecified; Z79.899 Other long term (current) drug therapy; Z20.822 Contact with and (suspected) exposure to COVID-19; V49.9XXA Car occupant (driver) (passenger) injured in unspecified traffic accident, initial encounter
CPT/HCPCS: 0240U; 70450; 71045; 72125; 72170; 73590; 93005; 99285

== ENCOUNTER 2021-07-02 15:24 | Emergency (ER) | payer OTHER, MEDICAID ==
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
== END 2021-07-02 17:20 | disposition home or self-care (01) ==
LOC: MW.ED 15:24
DX: S89.91XA Unspecified injury of right lower leg, initial encounter (principal); I10 Essential (primary) hypertension; Z79.899 Other long term (current) drug therapy; Z72.0 Tobacco use; V89.2XXA Person injured in unspecified motor-vehicle accident, traffic, initial encounter; Y92.410 Unspecified street and highway as the place of occurrence of the external cause
CPT/HCPCS: 99283

== ENCOUNTER 2021-09-03 22:56 | Emergency (ER) | payer MEDICAID, OTHER ==
[2021-09-04] MEDS ORDERED: Bacitracin Oint 1 GM U/D Packet TOP STA (00:12)
== END 2021-09-04 00:26 | disposition home or self-care (01) ==
LOC: MW.ED 22:56
DX: S00.03XA Contusion of scalp, initial encounter (principal); S00.81XA Abrasion of other part of head, initial encounter; I10 Essential (primary) hypertension; Z87.891 Personal history of nicotine dependence; Y04.0XXA Assault by unarmed brawl or fight, initial encounter
CPT/HCPCS: 70450; 70450-26; 72125; 72125-26; 99283; 99284-25

== ENCOUNTER 2021-11-02 10:05 | Day surgery (SDC) | payer MEDICAID ==
[2021-11-02] MEDS ORDERED: Ketamine 500 mg/10 ML MDV ONE (12:52)
[2021-11-02] MEDS ORDERED: Ondansetron 4 MG/2 ML SDV ONE (12:56)
[2021-11-02] MEDS ORDERED: Labetalol 100 MG/20 ML MDV ONE (13:01)
== END 2021-11-02 14:09 | disposition home or self-care (01) ==
LOC: MW.SDS 10:05
PROVIDERS: ATTEND Surgery
DX: K64.8 Other hemorrhoids (principal); I10 Essential (primary) hypertension; K21.9 Gastro-esophageal reflux disease without esophagitis; F41.9 Anxiety disorder, unspecified; F32.A Depression, unspecified; E55.9 Vitamin D deficiency, unspecified; G43.109 Migraine with aura, not intractable, without status migrainosus; Z90.49 Acquired absence of other specified parts of digestive tract; F17.210 Nicotine dependence, cigarettes, uncomplicated; Z79.899 Other long term (current) drug therapy
CPT/HCPCS: 00811; J2250; J2405; J2704; J3010; J3490; J7120

== ENCOUNTER 2021-11-06 06:06 | Day surgery (SDC) | payer MEDICAID ==
[2021-11-06] MEDS ORDERED: Propofol 200 MG/20 ML SDV ONE (06:45)
[2021-11-06] MEDS ORDERED: fentaNYL 250 MCG/5 ML SDV ONE ×2 (06:45→07:40)
[2021-11-06] MEDS ORDERED: Metoclopramide 10 MG/2 ML SDV IVPUSH PRN (06:46)
[2021-11-06] MEDS ORDERED: Albuterol 0.083% 2.5 MG/3 ML Neb Soln NEB PRN (06:46)
[2021-11-06] MEDS ORDERED: Naloxone 0.4 MG/ML SDV IVPUSH PRN (06:46)
[2021-11-06] MEDS ORDERED: fentaNYL 100 MCG/2 ML SDV IVPUSH PRN (06:46)
[2021-11-06] MEDS ORDERED: Ondansetron 4 MG/2 ML SDV IVPUSH PRN (06:46)
[2021-11-06] MEDS ORDERED: Bupivacaine 0.25%/EPINEPHrine 1:200,000 10 ML SDV ONE (07:02)
[2021-11-06] MEDS ORDERED: Lidocaine 2% Jelly 30 ML Tube ONE (07:11)
[2021-11-06] MEDS ORDERED: Clindamycin Phosphate in D5W 50 ML ONE (07:28)
[2021-11-06] MEDS ORDERED: HYDROmorphone 2 MG/ML Syringe ONE (08:32)
[2021-11-06] MEDS: HYDROmorphone 1 MG/ML Syringe IVPUSH PRN ×2 (08:48→09:03)
[2021-11-06] MEDS ORDERED: Rocuronium Bromide 50 MG/5 ML Syringe ONE (09:19)
[2021-11-06] MEDS ORDERED: Ondansetron 4 MG/2 ML SDV ONE (09:19)
[2021-11-06] MEDS ORDERED: Glycopyrrolate 0.2 MG/ML SDV ONE (09:19)
[2021-11-06] MEDS ORDERED: Dexamethasone 4 MG/ML 5 ML MDV ONE (09:19)
[2021-11-06] MEDS ORDERED: Sugammadex Sodium 200 MG/2 ML VIAL ONE (09:19)
[2021-11-06] MEDS ORDERED: Ketorolac 30 MG/ML SDV ONE (09:41)
== END 2021-11-06 10:39 | disposition home or self-care (01) ==
LOC: MW.SDS 06:06
PROVIDERS: ATTEND Surgery
DX: K64.8 Other hemorrhoids (principal); I10 Essential (primary) hypertension; K21.9 Gastro-esophageal reflux disease without esophagitis; F41.9 Anxiety disorder, unspecified; Z87.891 Personal history of nicotine dependence
CPT/HCPCS: 46260; J0131; J1100; J1170; J2405; J2704; J3010; J3490; 00902; J1885

== ENCOUNTER 2023-04-22 01:47 | Emergency (ER) | payer SELFPAY ==
[2023-04-22] MEDS ORDERED: Sodium Chloride 0.9% 1,000 ML IV ONE (01:55)
[2023-04-22] MEDS ORDERED: Metoclopramide 10 MG/2 ML SDV IVPUSH ONE (01:56)
[2023-04-22] MEDS ORDERED: Ketorolac 30 MG/ML SDV IVPUSH ONE (01:57)
[2023-04-22] MEDS ORDERED: Magnesium Sulfate/Water 2 GM in Premix Bag 1 BAG IV SCH (02:00)
[2023-04-22 02:07] LABS: BASOPHILS ABSOLUTE AUTO 0.07 K/uL (0.00-0.20); BASOPHILS PERCENT AUTO 0.8 % (0.0-1.0); EOSINOPHILS ABSOLUTE AUTO 0.23 K/uL (0.00-0.45); EOSINOPHILS PERCENT AUTO 2.5 % (0.0-6.0); HEMATOCRIT 45.2 % (42.0-52.0); IMMATURE GRAN ABSOLUTE AUTO 0.07 K/uL (0.00-0.05); IMMATURE GRAN PERCENT AUTO 0.8 % (0.0-0.4); LYMPHOCYTES ABSOLUTE AUTO 2.79 K/uL (1.00-4.80); LYMPHOCYTES PERCENT AUTO 30.4 % (24.0-44.0); MEAN CORPUSCULAR HEMOGLOBIN 29.9 pg (28.0-32.0); MEAN CORPUSCULAR HGB CONC 35.4 g/dL (32.0-36.0); MEAN CORPUSCULAR VOLUME 84.3 fL (83.0-99.0); MEAN PLATELET VOLUME 9.4 fL (9.4-12.4); MONOCYTES ABSOLUTE AUTO 0.83 K/uL (0.00-0.80); NEUTROPHILS ABSOLUTE AUTO 5.19 K/uL (1.80-7.70); NEUTROPHILS PERCENT AUTO 56.5 % (41.0-71.0); PLATELET COUNT,PLT 283 K/uL (150-400); RED BLOOD CELL COUNT 5.36 M/uL (4.52-5.90); WHITE BLOOD CELL COUNT,WBC 9.18 K/uL (3.9-11.3)
[2023-04-22 02:43] LABS: CALCIUM 9.2 mg/dL (8.5-10.1); CARBON DIOXIDE,CO2 24.9 mmol/L (21.0-32.0); CREATININE 0.9 mg/dL (0.8-1.3); EST CRCL DRUG DOSING (CG) 146.05 mL/min; POTASSIUM,K 3.8 mmol/L (3.5-5.1)
== END 2023-04-22 03:13 | disposition home or self-care (01) ==
LOC: MW.ED 01:47
DX: R51.9 Headache, unspecified (principal); I10 Essential (primary) hypertension; K21.9 Gastro-esophageal reflux disease without esophagitis; F17.210 Nicotine dependence, cigarettes, uncomplicated; Z79.899 Other long term (current) drug therapy
CPT/HCPCS: 36415; 70450; 80048; 85025; 96365; 96375; 99284; J1885; J2765; J3475; J7030

== ENCOUNTER 2024-06-08 09:20 | Emergency (ER) | payer SELFPAY ==
[2024-06-08] MEDS: Ketorolac 30 MG/ML SDV IVPUSH ONE (10:29)
[2024-06-08 11:06] LABS: APPEARANCE,URINE CLEAR; BILIRUBIN,URINE NEGATIVE (NEGATIVE); COLOR,URINE YELLOW; GLUCOSE,URINE NEGATIVE (NEGATIVE); KETONES,URINE NEGATIVE (NEGATIVE); LEUKOCYTE ESTERASE,URINE NEGATIVE (NEGATIVE); NITRITE,URINE NEGATIVE (NEGATIVE); OCCULT BLOOD,URINE NEGATIVE (NEGATIVE); PROTEIN,URINE NEGATIVE (NEGATIVE); UROBILINOGEN,URINE 0.2 EU/dL (<2.0)
[2024-06-08] MEDS: Morphine 4 MG/ML Syringe IVPUSH ONE (11:12)
[2024-06-08 11:22] LABS: HEMATOCRIT 41.1 % (42.0-52.0); HEMOGLOBIN 14.4 g/dL (14.0-18.0); MEAN CORPUSCULAR VOLUME 85.6 fL (83.0-99.0); MEAN PLATELET VOLUME 9.4 fL (9.4-12.4); PLATELET COUNT,PLT 281 K/uL (150-400); WHITE BLOOD CELL COUNT,WBC 8.58 K/uL (3.9-11.3)
[2024-06-08 12:11] LABS: A/G RATIO 1.3 (0.9-1.6); ALBUMIN 3.8 g/dL (3.4-5.0); BILIRUBIN TOTAL 0.9 mg/dL (0.2-1.0); CALCIUM 9.2 mg/dL (8.5-10.1); CARBON DIOXIDE,CO2 27.4 mmol/L (21.0-32.0); CREATININE 0.8 mg/dL (0.8-1.3); EST CRCL DRUG DOSING (CG) 167.27 mL/min; POTASSIUM,K 3.9 mmol/L (3.5-5.1); PROTEIN TOTAL,TP 6.7 g/dL (6.4-8.2)
== END 2024-06-08 12:48 | disposition home or self-care (01) ==
LOC: MW.ED 09:20
DX: K46.9 Unspecified abdominal hernia without obstruction or gangrene (principal); N50.811 Right testicular pain; R10.31 Right lower quadrant pain; F17.210 Nicotine dependence, cigarettes, uncomplicated
CPT/HCPCS: 36415; 74176; 76870; 80053; 81003; 85027; 96374; 96375; 99284; J1885; J2270

== ENCOUNTER 2024-07-03 22:50 | Emergency (ER) | payer BC ==
[2024-07-03] MEDS: Ondansetron 4 MG/2 ML SDV IVPUSH ONE (23:54)
[2024-07-03] MEDS: Lactated Ringers 1,000 ML IV ONE (23:54)
[2024-07-03] MEDS: Acetaminophen 500 MG Tab PO ONE (23:54)
[2024-07-04 00:11] LABS: BASOPHILS ABSOLUTE AUTO 0.02 K/uL (0.00-0.20); BASOPHILS PERCENT AUTO 0.2 % (0.0-1.0); EOSINOPHILS ABSOLUTE AUTO 0.03 K/uL (0.00-0.45); EOSINOPHILS PERCENT AUTO 0.3 % (0.0-6.0); HEMATOCRIT 44.1 % (42.0-52.0); HEMOGLOBIN 15.4 g/dL (14.0-18.0); IMMATURE GRAN ABSOLUTE AUTO 0.08 K/uL (0.00-0.05); IMMATURE GRAN PERCENT AUTO 0.7 % (0.0-0.4); LYMPHOCYTES PERCENT AUTO 5.9 % (24.0-44.0); MEAN CORPUSCULAR HEMOGLOBIN 30.1 pg (28.0-32.0); MEAN CORPUSCULAR HGB CONC 34.9 g/dL (32.0-36.0); MEAN CORPUSCULAR VOLUME 86.3 fL (83.0-99.0); MEAN PLATELET VOLUME 9.5 fL (9.4-12.4); MONOCYTES ABSOLUTE AUTO 0.92 K/uL (0.00-0.80); MONOCYTES PERCENT AUTO 7.8 % (0.0-8.0); NEUTROPHILS ABSOLUTE AUTO 10.09 K/uL (1.80-7.70); NEUTROPHILS PERCENT AUTO 85.1 % (41.0-71.0); PLATELET COUNT,PLT 245 K/uL (150-400); RED BLOOD CELL COUNT 5.11 M/uL (4.52-5.90); WHITE BLOOD CELL COUNT,WBC 11.84 K/uL (3.9-11.3)
[2024-07-04 00:27] LABS: A/G RATIO 1.2 (0.9-1.6); ALBUMIN 3.8 g/dL (3.4-5.0); BILIRUBIN TOTAL 0.7 mg/dL (0.2-1.0); CALCIUM 8.4 mg/dL (8.5-10.1); CARBON DIOXIDE,CO2 25.2 mmol/L (21.0-32.0); EST CRCL DRUG DOSING (CG) 133.82 mL/min; POTASSIUM,K 3.9 mmol/L (3.5-5.1); PROTEIN TOTAL,TP 6.9 g/dL (6.4-8.2)
== END 2024-07-04 01:11 | disposition home or self-care (01) ==
LOC: MW.ED 22:50
DX: B34.9 Viral infection, unspecified (principal); I10 Essential (primary) hypertension; F17.210 Nicotine dependence, cigarettes, uncomplicated; Z79.899 Other long term (current) drug therapy; Z90.49 Acquired absence of other specified parts of digestive tract
CPT/HCPCS: 36415; 80053; 83690; 85025; 96361; 96374; 99284; A9270; J2405; J7120; 99283